=== PATIENT | male | born 1950 | race Caucasian/White ===

== ENCOUNTER 2020-04-09 14:43 | Outpatient (CLI) | payer OTHER, SELFPAY ==
--- NOTE | 2020-04-09 15:27 | XR_ITS ---
WS: [id number] Exam: XR chest 2V* [id number] Date/Time of Exam: 04/09/2020 3:27 PM Reason For Exam: SOB Findings: The lungs are clear and fully expanded. Costophrenic angles are sharp. No infiltrates. Bronchovascula r relief appears normal. Cardiac silhouette is unremarkable. Bony elements are intact. XR/XR chest 2V* [id number] IMPRESSION: Unremarkable chest radiograph.
== END 2020-04-09 14:44 | disposition home or self-care (01) ==
LOC: RAD 14:51
PROVIDERS: Visit Provider Electrodiagnostic Medicine
DX: J18.9 Pneumonia, unspecified organism (principal)
CPT/HCPCS: 71046

== ENCOUNTER 2020-06-21 10:05 | Outpatient (CLI) | payer MEDICARE, SELFPAY ==
--- NOTE | 2020-06-21 10:16 | CT_ITS ---
WS: [id number] CT scan of the chest without IV contrast, additional two-dimensional coronal and sagittal reconstruct ion was performed. 06/21/2020 Clinical Data: DYSPNEA ON EXERTION, SMOKER, COPD, PNEUMONIA, BRONCHITIS Comparison: PA and lateral chest, 04/09/2020. DLP: 868.[address] scans at [facility] use at least one of these dose optimization techniques: automat ed exposure control; mA and/or kV adjustment per patient size (includes targeted exams where dose is matched to clinical indication); or iterative reconstruction. Findings: No nodules, masses or effusions are seen. The heart size is at the upper limits of normal with a smal l pericardial effusion. No pneumonia or pneumothorax is seen. The pulmonary arterial system and thora cic aorta demonstrate no abnormalities or dilatations. There is no axillary or significant mediastina l adenopathy. The upper abdomen shows bilateral renal cortical cysts, the largest of which is 4.9 cm in the anterio r right kidney. 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 CT/CT chest wo con [id number] Impression: 1. Mild cardiomegaly. 2. No acute cardiopulmonary disease is seen.
== END 2020-06-21 10:06 | disposition home or self-care (01) ==
LOC: RADWPI 10:14
PROVIDERS: Visit Provider Electrodiagnostic Medicine
DX: R06.09 Other forms of dyspnea (principal); F17.200 Nicotine dependence, unspecified, uncomplicated; J44.9 Chronic obstructive pulmonary disease, unspecified; J18.9 Pneumonia, unspecified organism; J20.9 Acute bronchitis, unspecified; I51.7 Cardiomegaly
CPT/HCPCS: 71250

== ENCOUNTER → 2020-07-16 13:26 | Outpatient (BNVA) | payer MEDICARE, SELFPAY | PROVIDERS: Visit Provider Electrodiagnostic Medicine | DX: Z20.828 Contact with and (suspected) exposure to other viral communicable diseases (principal) | CPT/HCPCS: 87635 ==

== ENCOUNTER 2020-07-19 10:56 | Outpatient (CLI) | payer MEDICARE, SELFPAY ==
--- NOTE | 2020-07-19 12:53 | PFTS_ITS ---
Date of Study:07/19/20 Date of Dictation: 07/20/2020 MECHANICS: Prebronchodilator forced vital capacity (FVC) is normal. Prebronchodilator forced expiratory volume in one second (FEV1) is normal. FEV1/FVC is normal. Postbronchodilator study not performed. FLOW VOLUME LOOP: normal. . LUNG VOLUMES: Total lung capacity (TLC) is normal. Residual volume (RV) is normal. DIFFUSING CAPACITY FOR CARBON MONOXIDE: Mildly reduced 75% . INTERPRETATION: The pre bronchodilator spirometry normal. Normal lung volumes. Isolated mild reduction in gas transfer suggestive of pulmonary vascular disease. Correlate clinically. MTDD
== END 2020-07-19 10:57 | disposition home or self-care (01) ==
LOC: RT 10:58
PROVIDERS: Visit Provider Electrodiagnostic Medicine
DX: R06.09 Other forms of dyspnea (principal); F17.200 Nicotine dependence, unspecified, uncomplicated; J44.9 Chronic obstructive pulmonary disease, unspecified; J18.9 Pneumonia, unspecified organism; J20.9 Acute bronchitis, unspecified
CPT/HCPCS: 94010; 94726; 94729

== ENCOUNTER 2025-03-30 08:45 | Outpatient (CLI) | payer MEDICARE, SELFPAY ==
--- NOTE | 2025-03-30 08:54 | CT_ITS ---
WS: [id number] LDCT LUNG CANCER SCREENING HISTORY: NICOTINE DEPENDENCE,CIGARETTES TECHNIQUE: Axial imaging performed from the apices to 1 cm below the costophrenic angles. Coronal and sagittal reformats are submitted with axial MIP series. All CT scans at [facility] use at least one of these dose optimization techniques: automated exposure control; mA and/or kV adjustment per patient size (includes targeted exams where dose is matched to clinical indication); or iterative reconstruction. DLP: 59.61 mGy.cm DIvol: Mean CTDIvol: 1.20 (mGy) COMPARISON: 06/21/2020 Diagnostic quality: Satisfactory Lungs: Hyperinflated lungs with emphysema. Subsolid nodule LEFT upper lobe measures 5 mm. No mass. No endobronchial lesions. Heart: Moderate cardiomegaly with a small pericardial effusion.. Other findings: No adenopathy. Mild atherosclerosis and ectasia aorta. Normal size pulmonary artery. Thyroid gland is enlarged and heterogeneous encasing the trachea and extending into the upper thorax. CT/CT lung screening [id number] IMPRESSION: LUNG-RADS: 2S-Benign Appearance or Behavior with Significant Findings FOLLOW UP: 12 Month: Continue annual screening with LDCT OTHER FINDINGS (S MODIFIER): Enlarged thyroid extending substernal. Probably re presents a goiter. Consider thyroid ultrasound evaluation.
== END 2025-03-30 08:46 | disposition home or self-care (01) ==
LOC: RAD 08:46
PROVIDERS: PCP Electrodiagnostic Medicine; Visit Provider Electrodiagnostic Medicine
DX: Z12.2 Encounter for screening for malignant neoplasm of respiratory organs (principal); F17.210 Nicotine dependence, cigarettes, uncomplicated; J43.9 Emphysema, unspecified; R59.0 Localized enlarged lymph nodes; I70.0 Atherosclerosis of aorta; I51.7 Cardiomegaly
CPT/HCPCS: 71271